=== PATIENT | male | born 1990 | race Hispanic/Latino ===

== ENCOUNTER 2018-12-29 00:54 | Emergency (ER) | payer SELFPAY ==
[2018-12-29 01:36] VITALS: RESP 16; O2SAT 100
[2018-12-29] MEDS ORDERED: Sodium Chloride 0.9% 1,000 ML IV STA ×2 (01:49→01:57)
--- NOTE | 2018-12-29 02:28 | ED PDOC ---
HPI: Influenza Time Seen by Provider: 12/29/18 01:46 Chief Complaint: Flu-like Symptoms Chief Complaint (Provider): Flu-like Symptoms History Per: Patient Exam Limitations: no limitations Symptoms include: fever, bodyaches, vomiting Additional complaint(s):: Hua Floyd Jr. is a 28 year old male with no past medical history, who presents to the emergency department complaining of flu-like symptoms that he states developed after he was given an unknown substance x24 hours ago. P atient states he took it recreationally while drinking. He reports that he developed fever and chills that he attributes to the substance. Patient reports of not having his flu vaccine but has had the flu in the past. He feels as if that it may be related to flu now. Patient has vomited once but denies having any other medical complaints at this time. PMD: no provider Past Medical History Reviewed: Historical Data, Nursing Documentation, Vital Signs Vital Signs: Last Vital Signs Temp 100.5 F H 12/29/18 01:30 Pulse 100 H 12/29/18 01:30 Resp 16 12/29/18 01:30 BP 118/81 12/29/18 01:30 Pulse Ox 100 12/29/18 01:30 - Medical History PMH: No Chronic Diseases - Surgical History Surgical History: No Surg Hx - Family History Family History: States: Unknown Family Hx - Social History Current smoker - smoking cessation education provided: No Ex-Smoker (has not smoked in the last 12 months): No Alcohol: None Drugs: Denies - Immunization History Hx Influenza Vaccination: No - Home Medications Home Medications: Ambulatory Orders Medication Instructions Recorded Oseltamivir Cap [Tamiflu] 75 mg PO BID #10 cap 12/29/18 - Allergies Allergies/Adverse Reactions: Allergies Allergy/AdvReac Type Severity Reaction Status Date / Time nut - unspecified Allergy RASH Verified 12/29/18 01:36 Review of Systems ROS Statement: Except As Marked, All Systems Reviewed And Found Negative Constitutional: Positive for: Fever, Chills, Other (body aches) Gastrointestinal: Positive for: Vomiting Physical Exam - Reviewed Nursing Documentation Reviewed: Yes Vital Signs Reviewed: Yes - Physical Exam Appears: Positive for: Non-toxic, No Acute Distress Head Exam: Positive for: ATRAUMATIC, NORMOCEPHALIC Skin: Positive for: Normal Color, Warm, Dry Eye Exam: Positive for: Normal appearance, EOMI, PERRL ENT: Positive for: Normal ENT Inspection Neck: Positive for: Normal, Painless ROM, Supple Cardiovascular/Chest: Positive for: Regular Rate, Rhythm. Negative for: Murmur Respiratory: Positive for: Normal Breath Sounds. Negative for: Respiratory Distress Gastrointestinal/Abdominal: Positive for: Normal Exam, Soft. Negative for: Tenderness Back: Positive for: Normal Inspection. Negative for: L CVA Tenderness, R CVA Tenderness, Vertebral Tenderness Extremity: Positive for: Normal ROM. Negative for: Pedal Edema, Deformity Neurological/Psych: Positive for: Awake, Alert, Oriented. Negative for: Motor/Sensory Deficits Medical Decision Making Medical Decision Making: Time: 014 Impression: 28 year old male presenting with flu-like symptoms. Will order labs, IV fluids, Toradol, Tylenol, and Zofran Plan: --Heplock Insertion --Alcohol Serum --CMP --Lipase --Urine drug screen --ED urine dipstick --CBC with differential --Baca [Infectious Mononucleosis] --Influenza AB --Urinalysis --Tylenol 975 mg PO --Toradol 30 mg IV --Sodium Chloride 1,000 ml --Zofran 4 mg IV Time: 0400 --Labs show no clinically significant abnormalities. --Will treat for influenza based on strong clinical suspicion despite negative flu swab. --Diagnosis: Influenza like symptoms. Scribe Attestation: Documented by Emeterio Landa, acting as a scribe Marquita Keyes MD. Provider Scribe Attestation: All medical record entries made by the Scribe were at my direction and personally dictated by me. I have reviewed the chart and agree that the record accurately reflects my personal performance of the history, physical exam, medical decision making, and the department course for this patient. I have also personally directed, reviewed, and agree with the discharge instructions and disposition. - Laboratory Results Result Diagrams: 12/29/18 02:25 12/29/18 02:25 - ECG O2 Sat by Pulse Oximetry: 100 (RA) Pulse Ox Interpretation: Normal Disposition - Clinical Impression Clinical Impression: Influenza-like symptoms - Disposition Disposition Time: 04:00 Condition: STABLE Prescriptions: Oseltamivir Cap [Tamiflu] 75 mg PO BID #10 cap Instructions: Flu Forms: [employer] ([place])
[2018-12-29 02:52] LABS: BASO % 0.2 % (0.0-2.0); HEMOGLOBIN 14.9 g/dL (12.0-18.0); LYMPH # 0.9 K/uL (1.0-4.3); LYMPH % 6.7 % (20.0-40.0); MEAN CELL VOLUME 87.7 fl (80.0-94.0); MEAN CORPUSCULAR HEMOGLOBIN 30.3 pg (27.0-31.0); MEAN CORPUSCULAR HGB CONC 34.5 g/dL (33.0-37.0); MEAN PLATELET VOLUME 8.1 fl (7.2-11.7); MONO # 0.8 K/uL (0.0-0.8); MONO % 6.5 % (0.0-10.0); NEUT # 11.2 K/uL (1.8-7.0); NEUT % 86.6 % (50.0-75.0); PLATELET COUNT 178 K/uL (130-400); RBC 4.91 Mil/uL (4.40-5.90); RED CELL DISTRIBUTION WIDTH 12.5 % (11.5-14.5); WHITE BLOOD COUNT 12.9 K/uL (4.8-10.8)
[2018-12-29 02:55] LABS: URINE BILIRUBIN NEGATIVE (NEGATIVE); URINE BLOOD SMALL (NEGATIVE); URINE CLARITY CLEAR (Clear); URINE COLOR YELLOW (YELLOW); URINE GLUCOSE (UA) NEG (NEGATIVE); URINE LEUKOCYTE ESTERASE NEG Leu/uL (Negative); URINE PROTEIN NEGATIVE (NEGATIVE); URINE UROBILINOGEN 0.2-1.0 mg/dL (0.2-1.0)
[2018-12-29 03:04] LABS: ALB/GLOB RATIO 1.4 (1.0-2.1); ALBUMIN 4.9 g/dL (3.5-5.0); ALT/SGPT 31 U/L (21-72); AST/SGOT 34 U/L (17-59); BLOOD UREA NITROGEN 14 mg/dl (9-20); CALCIUM 9.5 mg/dL (8.4-10.2); GFR NON-AFRICAN AMERICAN > 60; LIPASE 43 U/L (23-300)
[2018-12-29 03:30] LABS: BARBITURATES, UR NEGATIVE (NEGATIVE); BENZODIAZEPINES, UR NEGATIVE (NEGATIVE); PHENCYCLIDINE, UR NEGATIVE (NEGATIVE)
[2018-12-29 03:56] LABS: OPIATES, UR NEGATIVE (NEGATIVE)
[2018-12-29 04:18] LABS: BANDS 8 % (0-2); LYMPHOCYTE 7 % (20-50); MONOCYTE 9 % (0-10); NEUTROPHIL 76 % (42-75); PLATELET ESTIMATE NORMAL (NORMAL); TOTAL CELLS COUNTED 100
[2018-12-29 04:39] VITALS: BP 106/56; PULSE 83; TEMP 99.6
== END 2018-12-29 04:20 | disposition home or self-care (01) ==
LOC: H.ER 00:54
DX: J11.1 Influenza due to unidentified influenza virus with other respiratory manifestations (principal)
CPT/HCPCS: 80053; 81003; 83690; 85025; 86308; 87804; 96360; 99285; G0480; J1885; J2405; J7030